=== PATIENT | male | born 1985 | race Caucasian/White ===

== ENCOUNTER 2019-02-27 22:10 | Emergency (ER) | payer MEDICAID, OTHER ==
[~2019-02-27] VITALS: Ht 190.5 cm; Wt 86.2 kg
[2019-02-27] MEDS ORDERED: HYDROCODONE/APAP 5/325MG 1 EACH TABLET PO ONE (23:30)
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
[2019-02-27] MEDS ORDERED: HYDROCODONE/APAP 5/325MG 1 EACH TABLET ONE (23:41)
--- NOTE | 2019-02-28 00:18 | NUR ---
LACERATION FLUSH WITH NS. MD AT BEDSIDE.
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
[2019-02-28 01:23] VITALS: BP 125/76
--- NOTE | 2019-02-28 01:25 | NUR ---
Patient discharged to home in stable condition. Written and verbal after care instructions given. Patient verbalizes understanding of instruction. Pt ambulatory with a steady gait
== END 2019-02-28 01:25 | disposition home or self-care (01) ==
LOC: ER 22:13
DX: S61.412A Laceration without foreign body of left hand, initial encounter (principal); N40.0 Benign prostatic hyperplasia without lower urinary tract symptoms; F41.9 Anxiety disorder, unspecified; F12.10 Cannabis abuse, uncomplicated; W26.0XXA Contact with knife, initial encounter; Y93.89 Activity, other specified; Y92.89 Other specified places as the place of occurrence of the external cause; Y99.8 Other external cause status